=== PATIENT | female | born 1960 | race Caucasian/White ===

== ENCOUNTER 2017-12-01 11:44 | Outpatient (CLI) | payer BC | END 2017-12-01 11:45 | disposition home or self-care (01) | LOC: BICRAD 11:44 | PROVIDERS: ATTEND Chiropractor | DX: M47.22 Other spondylosis with radiculopathy, cervical region (principal) | CPT/HCPCS: 72050 ==

== ENCOUNTER 2018-08-09 15:19 | Outpatient (CLI) | payer BC | END 2018-08-09 15:20 | disposition home or self-care (01) | LOC: BICMAMMO 15:19 | PROVIDERS: ATTEND Internal Medicine | DX: Z12.31 Encounter for screening mammogram for malignant neoplasm of breast (principal) | CPT/HCPCS: 77063; 77067 ==

== ENCOUNTER 2019-08-03 18:30 | Outpatient (CLI) | payer BC | END 2019-08-03 18:31 | disposition home or self-care (01) | LOC: SLEEPLAB 18:30 | PROVIDERS: ATTEND Internal Medicine | DX: G47.33 Obstructive sleep apnea (adult) (pediatric) (principal); K21.9 Gastro-esophageal reflux disease without esophagitis; R06.83 Snoring; E66.9 Obesity, unspecified; Z68.35 Body mass index [BMI] 35.0-35.9, adult | CPT/HCPCS: 95806 ==

== ENCOUNTER 2019-09-26 20:30 | Outpatient (CLI) | payer BC | END 2019-09-26 20:31 | disposition home or self-care (01) | LOC: SLEEPLAB 20:30 | PROVIDERS: ATTEND Internal Medicine | DX: G47.33 Obstructive sleep apnea (adult) (pediatric) (principal); R06.83 Snoring; K21.9 Gastro-esophageal reflux disease without esophagitis; E66.9 Obesity, unspecified | CPT/HCPCS: 95811 ==

== ENCOUNTER 2020-03-06 15:35 | Outpatient (CLI) | payer BC ==
--- NOTE | 2020-03-06 16:10 | MMO ---
Bilateral MAMMO Bilat Screen [facility]. CLINICAL HISTORY: Patient is 59 years old and is seen for screening. The patient has no family history of breast cancer. The patient has no personal history of cancer. VIEWS: The views performed were: bilateral craniocaudal with tomosynthesis and bilateral mediolateral oblique with tomosynthesis. FILMS COMPARED: The present examination has been compared to prior imaging studies performed at [facility] on 07/10/2014, 09/02/2015, 06/02/2017 and 08/09/2018. This study has been interpreted with the assistance of computer-aided detection. MAMMOGRAM FINDINGS: The breasts are heterogeneously dense, which could obscure a lesion on mammography. There are no suspicious masses, suspicious calcifications, or new areas of architectural distortion. IMPRESSION: THERE IS NO MAMMOGRAPHIC EVIDENCE OF MALIGNANCY. A ROUTINE FOLLOW-UP MAMMOGRAM IN 1 YEAR IS RECOMMENDED. THE RESULTS OF THIS EXAM WERE SENT TO THE PATIENT. ACR BI-RADS Category 1 - Negative MAMMOGRAPHY NOTE: 1. A negative mammogram report should not delay a biopsy if a dominant of clinically suspicious mass is present. 2. Approximately 10% to 15% of breast cancers are not detected by mammography. 3. Adenosis and dense breasts may obscure an underlying neoplasm. Reported by: CASSIE RINCON MD Electonically Signed: [id number]
== END 2020-03-06 15:36 | disposition home or self-care (01) ==
LOC: BICMAMMO 15:35
PROVIDERS: ATTEND Internal Medicine
DX: Z12.31 Encounter for screening mammogram for malignant neoplasm of breast (principal)
CPT/HCPCS: 77063; 77067

== ENCOUNTER 2021-07-24 09:18 | Day surgery (SDC) | payer OTHER, BC ==
[2021-07-24 10:47] LABS: SARS-CoV-2 NAA Rapid Test Not Detected (NotDetected)
[2021-07-24] MEDS ORDERED: Midazolam HCl 2 mg/2 ml Vial ONE (11:04)
[2021-07-24] MEDS ORDERED: Fentanyl 100 MCG/2 ML VIAL ONE ×2 (11:04→11:20)
[2021-07-24] MEDS ORDERED: ceFAZolin 2 GM/DEX 5% 100 ML BAG ONE (11:12)
[2021-07-24] MEDS ORDERED: Ropivacaine 0.5% HCl/PF (150 MG/30 ML VIAL) ONE (11:41)
[2021-07-24] MEDS ORDERED: Lidocaine 1% PF 5 ML VIAL ONE (11:41)
[2021-07-24] MEDS ORDERED: Dexamethasone 20 MG/5 ML VIAL ONE (11:41)
[2021-07-24] MEDS ORDERED: PROPOFOL 200 MG/20 ML VIAL ONE (11:41)
[2021-07-24] MEDS ORDERED: Ondansetron PF 4 MG/2 ML Vial ONE (11:41)
[2021-07-24] MEDS ORDERED: Ketorolac Tromethamine 30 MG/ML VIAL ONE (11:41)
[2021-07-24] MEDS ORDERED: ePHEDrine 50 MG/ML VIAL ONE (11:41)
[2021-07-24] MEDS ORDERED: Ropivacaine 0.2% 550 ML 550 ML NERVE BLCK SCH (11:45)
[2021-07-24] MEDS ORDERED: Ondansetron PF 4 MG/2 ML Vial IVP PRN (11:45)
[2021-07-24] MEDS ORDERED: Zolpidem Tartrate 5 MG TAB PO PRN (11:45)
[2021-07-24] MEDS ORDERED: HYDROcodone/Acetaminophen 10/325 mg Tablet PO PRN ×2 (11:45)
[2021-07-24] MEDS ORDERED: traMADol HCl 50 MG TAB PO PRN ×2 (11:45)
[2021-07-24] MEDS ORDERED: Promethazine HCl 25 MG/ML VIAL IM PRN (11:45)
[2021-07-24] MEDS ORDERED: Fentanyl 100 MCG/2 ML VIAL IV PRN (11:47)
== END 2021-07-24 16:58 | disposition home or self-care (01) ==
LOC: SDC 09:18
PROVIDERS: ATTEND Orthopaedic Surgery
PROC: 0PSG04Z Reposition Left Humeral Shaft with Internal Fixation Device, Open Approach (ICD-10-PCS; principal; 2021-07-24)
PROC: 3E0T3BZ Introduction of Anesthetic Agent into Peripheral Nerves and Plexi, Percutaneous Approach (ICD-10-PCS; principal; 2021-07-24)
DX: S42.452A Displaced fracture of lateral condyle of left humerus, initial encounter for closed fracture (principal); M19.90 Unspecified osteoarthritis, unspecified site; E78.00 Pure hypercholesterolemia, unspecified; G47.30 Sleep apnea, unspecified; E66.9 Obesity, unspecified; Z68.31 Body mass index [BMI] 31.0-31.9, adult; Z79.899 Other long term (current) drug therapy; Z91.040 Latex allergy status; Z20.822 Contact with and (suspected) exposure to COVID-19; W01.0XXA Fall on same level from slipping, tripping and stumbling without subsequent striking against object, initial encounter
CPT/HCPCS: 76000; J1100; J1885; J2250; J2405; J2704; J2795; J3010; J3490; U0002

== ENCOUNTER 2023-04-05 14:27 | Outpatient (CLI) | payer BC | END 2023-04-05 14:28 | disposition home or self-care (01) | LOC: BICMAMMO 14:27 | PROVIDERS: ATTEND Internal Medicine | DX: N64.52 Nipple discharge (principal) | CPT/HCPCS: 77066; G0279 ==

== ENCOUNTER 2024-10-18 09:05 | Outpatient (CLI) | payer BC | END 2024-10-18 09:06 | disposition home or self-care (01) | LOC: BICCT 09:05 | PROVIDERS: ATTEND Internal Medicine Gastroenterology | DX: R19.7 Diarrhea, unspecified (principal); R19.8 Other specified symptoms and signs involving the digestive system and abdomen; R10.9 Unspecified abdominal pain | CPT/HCPCS: 36415; 74177; 82565 ==